=== PATIENT | female | born 1980 | race Caucasian/White ===

== ENCOUNTER 2018-10-10 22:15 | Emergency (ER) | payer BC, OTHER ==
[~2018-10-10] VITALS: Ht 170.2 cm; Wt 63.5 kg
--- NOTE | 2018-10-10 22:25 | NUR ---
BIB SELF WITH . AAOX4. AND, BREATHING EVEN AND UNLABORED. AMBULATORY. C/O L JAW PAIN 10/10 WHICH IS WORST TODAY. PT HAD HX OF JAW SX AND TMJ REPORTED. NOTED FACIAL SWELLING ON L FACE. TO ER BED 9. MD AT BEDSIDE FOR EVAL
[2018-10-10] MEDS ORDERED: DIAZEPAM 10 MG TABLET ONE (22:52)
[2018-10-10] MEDS ORDERED: DEXAMETHASONE SOD PHOSPHATE 10 MG/ML VIAL ONE (22:52)
[2018-10-10] MEDS ORDERED: HYDROMORPHONE 1 MG/1 ML DISP.SYRIN ONE (22:53)
[2018-10-10] MEDS ORDERED: HYDROMORPHONE 1 MG/1 ML DISP.SYRIN IM ONE (23:00)
[2018-10-10] MEDS ORDERED: DIAZEPAM 10 MG TABLET PO ONE (23:00)
[2018-10-10] MEDS ORDERED: DEXAMETHASONE SOD PHOSPHATE 10 MG/ML VIAL IM ONE (23:00)
--- NOTE | 2018-10-10 23:26 | NUR ---
Patient discharged to home in stable condition. Written and verbal after care instructions given. Patient verbalizes understanding of instruction. Pt ambulatory with a steady gait. Instructed not to drive, left with boyfriend
[2018-10-11] MEDS ORDERED: HYDROMORPHONE 1 MG/1 ML DISP.SYRIN ONE (00:13)
[2018-10-11] MEDS ORDERED: HYDROMORPHONE 1 MG/1 ML DISP.SYRIN IM ONE (00:30)
[2018-10-11 00:48] VITALS: BP 125/73
== END 2018-10-10 23:27 | disposition home or self-care (01) ==
LOC: ER 22:19
DX: G89.29 Other chronic pain (principal); R68.84 Jaw pain; R51 Headache; F17.210 Nicotine dependence, cigarettes, uncomplicated; F41.9 Anxiety disorder, unspecified; Z98.890 Other specified postprocedural states; Z88.1 Allergy status to other antibiotic agents
CPT/HCPCS: 96372 ×2; 99283; 99406; J1100; J1170

== ENCOUNTER 2020-08-23 | Emergency (ER) | payer BC ==
[~2020-08-23] VITALS: Ht 170.2 cm; Wt 63.5 kg
[2020-08-23 00:05] VITALS: BP 128/90
== END 2020-08-23 01:03 | disposition home or self-care (01) ==
LOC: ER 01:00
DX: R51.9 Headache, unspecified (principal); G89.29 Other chronic pain; F41.9 Anxiety disorder, unspecified; F17.200 Nicotine dependence, unspecified, uncomplicated; Z98.890 Other specified postprocedural states; Z88.8 Allergy status to other drugs, medicaments and biological substances; Z88.1 Allergy status to other antibiotic agents